=== PATIENT | female | born 1965 | race Caucasian/White ===

== ENCOUNTER 2021-11-26 08:26 | Emergency (ER) | payer OTHER ==
[2021-11-26 09:05] LABS: BASOPHIL 0.8 % (0-2); EOSINOPHIL 2.3 % (0-5); HGB 14.1 g/dl (12.5-16.0); LYMPHOCYTE 24.2 % (15-48); MCH 31.6 pg (25.0-31.0); MCHC 33.6 g/dL (32.0-36.0); MCV 94.2 fL (78.0-100.0); MONOCYTE 5.2 % (0-12); MPV 10.8 fL (6.0-9.5); NRBC 0; PLT 262 K/uL (150-400); RBC 4.46 M/uL (4.20-5.40); RDW 13.2 % (11.5-14.0); WBC 7.9 K/uL (4.0-10.5)
[2021-11-26 09:21] LABS: ALBUMIN 4.6 g/dL (3.4-5.0); BILIRUBIN - TOTAL 0.6 mg/dL (0.2-1.0); BUN/CREAT RATIO (CALC) 17.8 RATIO; CREATININE 0.9 mg/dL (0.51-0.95); GLOBULIN (CALCULATION) 3.4 g/dL
== END 2021-11-26 10:26 | disposition home or self-care (01) ==
LOC: FER 08:26
PROVIDERS: Emergency Medicine
DX: I47.1 Supraventricular tachycardia (principal)
CPT/HCPCS: 36415; 71045; 80053; 84484; 85025; 93005; J0153